=== PATIENT | male | born 1950 | race Caucasian/White ===

== ENCOUNTER 2019-04-18 19:12 | Inpatient (IN) | payer OTHER, MEDICAID ==
[~2019-04-18] VITALS: Ht 170.2 cm; Wt 73.0 kg
[2019-04-18 19:26] VITALS: BP_SYST 135
[2019-04-18] MEDS ORDERED: NACL 0.9% 1,000 ML IV ONE (20:06)
[2019-04-18] MEDS ORDERED: ACET-2165 PO (20:43)
[2019-04-18] MEDS ORDERED: LIP20 PO (20:44)
[2019-04-18] MEDS ORDERED: BENA20TA9 PO (20:44)
[2019-04-18] MEDS ORDERED: DOCU-144 PO (20:46)
[2019-04-18] MEDS ORDERED: EFAV1TAB PO (20:56)
[2019-04-18] MEDS ORDERED: LACT10SO6 PO (20:58)
[2019-04-18] MEDS ORDERED: FOLI-43 PO (20:58)
[2019-04-18] MEDS ORDERED: LACO200T2 PO (21:00)
[2019-04-18] MEDS ORDERED: LEVE1000 PO (21:00)
[2019-04-18] MEDS ORDERED: OXCA600T5 PO (21:01)
[2019-04-18] MEDS ORDERED: OXYB5TAB11 PO (21:02)
[2019-04-18] MEDS ORDERED: PRO40 PO (21:03)
[2019-04-18] MEDS ORDERED: RIFA550T5 PO (21:04)
[2019-04-18] MEDS ORDERED: TRAM50TA2 PO (21:05)
[2019-04-18 21:08] LABS: BASOPHILS # (AUTO) 0.1 K/uL (0.0-0.2); BASOPHILS % (AUTO) 1.5 % (0.0-2.0); EOSINOPHILS # (AUTO) 0.2 K/uL (0.0-0.4); HEMATOCRIT 36.4 % (36-54); HEMOGLOBIN 12.2 g/dL (14.0-18.0); LYMPHOCYTES % (AUTO) 52.1 % (20.5-51.5); MEAN CORPUSCULAR HEMOGLOBIN 38 pg (27-31); MEAN CORPUSCULAR HGB CONC 33 % (32-36); MEAN CORPUSCULAR VOLUME 114 fL (79.0-98.0); MONOCYTES # (AUTO) 0.7 K/uL (0.0-1.0); MONOCYTES % (AUTO) 12.4 % (1.7-9.3); NEUTROPHILS # (AUTO) 1.8 K/uL (1.8-7.7); PLATELET COUNT (AUTO) 92 K/uL (130-430); RED CELL DISTRIBUTION WIDTH 14.3 % (9.0-15.0); WHITE BLOOD COUNT (AUTO) 5.9 K/uL (4.8-10.8)
[2019-04-18 21:23] LABS: ALANINE AMINOTRANSFERASE 46 U/L (12-78); ALBUMIN 2.3 g/dL (3.4-4.8); ANION GAP 7 (5-15); ASPARTATE AMINOTRANSFERASE 121 U/L (10-37); CHLORIDE 111 mmol/L (98-107); CREATININE 0.92 mg/dL (0.55-1.30); GLUCOSE 99 mg/dL (70-99); POTASSIUM 3.7 mmol/L (3.5-5.1); SODIUM SERUM 138 mmol/L (136-145); TOTAL BILIRUBIN 0.5 mg/dL (0.0-1.0); UREA NITROGEN, BLOOD 17 mg/dL (8-21)
[2019-04-18 21:27] LABS: CARBAMAZEPINE (TEGRETOL) < 0 ug/mL (4-12); GFR AFRICAN AMERICAN 105 mL/min (>90)
[2019-04-18 21:30] LABS: CALCIUM 8.2 mg/dL (8.4-11.0)
[2019-04-18 21:36] LABS: INR 1.1 (0.80-1.20)
[2019-04-18 22:26] LABS: BILIRUBIN,URINE NEGATIVE (NEGATIVE); BLOOD, URINE NEGATIVE (NEGATIVE); CLARITY/URINE CLEAR (CLEAR); COLOR,URINE YELLOW (YELLOW); GLUCOSE,URINE NEGATIVE (NEGATIVE); KETONES,URINE NEGATIVE (NEGATIVE); LEUKOCYTE ESTERASE ,URINE NEGATIVE (NEGATIVE); NITRITE, URINE NEGATIVE (NEGATIVE); PROTEIN URINE NEGATIVE (NEGATIVE); UROBILINOGEN,URINE 0.2 (0.2-1.0)
[2019-04-18 23:21] VITALS: BP_SYST 101
[2019-04-19] VITALS: BP_SYST 101
[2019-04-19] MEDS: LACTULOSE 20 GM/30 ML UDC PO SCH ×4 (00:07→22:41)
[2019-04-19] MEDS: D5/0.45 NS 1,000 ML IV SCH ×2 (00:07→17:37)
[2019-04-19 05:50] LABS: BASOPHILS # (AUTO) 0.2 K/uL (0.0-0.2); BASOPHILS % (AUTO) 2.8 % (0.0-2.0); EOSINOPHILS # (AUTO) 0.2 K/uL (0.0-0.4); EOSINOPHILS % (AUTO) 4.2 % (0.0-4.0); HEMATOCRIT 34.3 % (36-54); HEMOGLOBIN 11.6 g/dL (14.0-18.0); LYMPHOCYTES % (AUTO) 52.2 % (20.5-51.5); MEAN CORPUSCULAR HEMOGLOBIN 38 pg (27-31); MEAN CORPUSCULAR HGB CONC 34 % (32-36); MEAN CORPUSCULAR VOLUME 113 fL (79.0-98.0); MONOCYTES # (AUTO) 0.7 K/uL (0.0-1.0); NEUTROPHILS # (AUTO) 1.6 K/uL (1.8-7.7); NEUTROPHILS % (AUTO) 28.8 % (40.0-70.0); PLATELET COUNT (AUTO) 95 K/uL (130-430); RED BLOOD CELL COUNT(AUTO) 3.05 MIL/uL (4.2-6.2); RED CELL DISTRIBUTION WIDTH 14.3 % (9.0-15.0); WHITE BLOOD COUNT (AUTO) 5.7 K/uL (4.8-10.8)
[2019-04-19 07:11] LABS: ALBUMIN 2.1 g/dL (3.4-4.8); BILIRUBIN,DIRECT 0.3 mg/dL (0.0-0.3); CALCIUM 8.6 mg/dL (8.4-11.0); CREATININE 0.91 mg/dL (0.55-1.30); POTASSIUM 3.5 mmol/L (3.5-5.1); THYROID STIMULATING HORMONE 2.33 uIu/mL (0.34-4.82); TOTAL BILIRUBIN 0.6 mg/dL (0.0-1.0)
[2019-04-19 08:00] VITALS: BP_SYST 101
[2019-04-19] MEDS: RIFAXIMIN 550 MG TABLET PO SCH ×2 (09:20→22:41)
[2019-04-19] MEDS: OXcarbazepine 150 MG TABLET(TRILEPTAL) PO SCH ×2 (09:20→22:42)
[2019-04-19] MEDS: LACOSAMIDE 100 MG TABLET PO SCH ×2 (09:21→22:42)
[2019-04-19] MEDS: levETIRAcetam 500 MG TABLET PO SCH ×2 (09:21→22:42)
[2019-04-19 12:00] VITALS: BP_SYST 108
[2019-04-19] MEDS ORDERED: LACTULOSE 20 GM/30 ML UDC PO ONE (15:45)
[2019-04-19] MEDS ORDERED: traMADol HCL HCL 50 MG TABLET (ULTRAM) PO PRN (15:45)
[2019-04-19] MEDS ORDERED: ACETAMINOPHEN 325 MG TABLET PO PRN (15:45)
[2019-04-19 16:35] VITALS: BP_SYST 115
[2019-04-19 20:00] VITALS: BP_SYST 108
[2019-04-19] MEDS ORDERED: RIFAXIMIN 550 MG TABLET PO SCH (21:00)
[2019-04-19] MEDS ORDERED: OXcarbazepine 150 MG TABLET(TRILEPTAL) PO SCH (21:00)
[2019-04-19] MEDS ORDERED: levETIRAcetam 500 MG TABLET PO SCH (21:00)
[2019-04-19] MEDS ORDERED: LACOSAMIDE 100 MG TABLET PO SCH (21:00)
[2019-04-19] MEDS ORDERED: NON-FORMULARY MEDICATION MC SCH (21:00)
[2019-04-19] MEDS: OXYBUTYNIN CHLORIDE 5 MG TABLET PO SCH (22:42)
[2019-04-20 00:57] VITALS: BP_SYST 100
[2019-04-20] MEDS: PANTOPRAZOLE SODIUM 40 MG TAB PO SCH (06:19)
[2019-04-20] MEDS: D5/0.45 NS 1,000 ML IV SCH (06:19)
[2019-04-20] MEDS: LACTULOSE 20 GM/30 ML UDC PO SCH ×3 (06:19→23:49)
[2019-04-20] MEDS: RIFAXIMIN 550 MG TABLET PO SCH ×2 (08:16→23:48)
[2019-04-20] MEDS: FOLIC ACID 1 MG TABLET PO SCH (08:17)
[2019-04-20] MEDS: LACOSAMIDE 100 MG TABLET PO SCH ×2 (08:17→23:48)
[2019-04-20] MEDS: LISINOPRIL 20 MG TABLET PO SCH (08:17)
[2019-04-20] MEDS: OXYBUTYNIN CHLORIDE 5 MG TABLET PO SCH ×3 (08:17→23:48)
[2019-04-20] MEDS: levETIRAcetam 500 MG TABLET PO SCH ×2 (08:17→23:48)
[2019-04-20] MEDS: OXcarbazepine 150 MG TABLET(TRILEPTAL) PO SCH ×2 (08:18→23:48)
[2019-04-20 09:28] VITALS: BP_SYST 114
[2019-04-20 11:19] VITALS: BP_SYST 113
[2019-04-20 12:43] LABS: BASOPHILS # (AUTO) 0.1 K/uL (0.0-0.2); MONOCYTES % (AUTO) 11.6 % (1.7-9.3); RED CELL DISTRIBUTION WIDTH 14.2 % (9.0-15.0)
[2019-04-20 13:28] LABS: EOSINOPHILS # (AUTO) 0.2 K/uL (0.0-0.4); EOSINOPHILS % (AUTO) 2.7 % (0.0-4.0); HEMATOCRIT 35.5 % (36-54); HEMOGLOBIN 11.9 g/dL (14.0-18.0); LYMPHOCYTES # (AUTO) 2.7 K/uL (1.0-5.5); LYMPHOCYTES % (AUTO) 47.3 % (20.5-51.5); MEAN CORPUSCULAR HEMOGLOBIN 38 pg (27-31); MEAN CORPUSCULAR HGB CONC 34 % (32-36); MEAN CORPUSCULAR VOLUME 113 fL (79.0-98.0); MONOCYTES # (AUTO) 0.7 K/uL (0.0-1.0); NEUTROPHILS # (AUTO) 2.1 K/uL (1.8-7.7); NEUTROPHILS % (AUTO) 37.4 % (40.0-70.0); RED BLOOD CELL COUNT(AUTO) 3.16 MIL/uL (4.2-6.2); WHITE BLOOD COUNT (AUTO) 5.7 K/uL (4.8-10.8)
[2019-04-20 13:31] LABS: PLATELET COUNT (AUTO) 91 K/uL (130-430)
[2019-04-20 16:00] VITALS: BP_SYST 102
[2019-04-20 20:00] VITALS: BP_SYST 96
[2019-04-21 00:45] VITALS: BP_SYST 100
[2019-04-21 06:09] LABS: BASOPHILS # (AUTO) 0.1 K/uL (0.0-0.2); BASOPHILS % (AUTO) 1.3 % (0.0-2.0); EOSINOPHILS # (AUTO) 0.2 K/uL (0.0-0.4); EOSINOPHILS % (AUTO) 3.9 % (0.0-4.0); HEMOGLOBIN 11.7 g/dL (14.0-18.0); LYMPHOCYTES % (AUTO) 48.7 % (20.5-51.5); MEAN CORPUSCULAR HEMOGLOBIN 39 pg (27-31); MEAN CORPUSCULAR HGB CONC 35 % (32-36); MEAN CORPUSCULAR VOLUME 112 fL (79.0-98.0); MONOCYTES # (AUTO) 0.7 K/uL (0.0-1.0); NEUTROPHILS # (AUTO) 2.2 K/uL (1.8-7.7); NEUTROPHILS % (AUTO) 35.1 % (40.0-70.0); PLATELET COUNT (AUTO) 86 K/uL (130-430); RED BLOOD CELL COUNT(AUTO) 3.04 MIL/uL (4.2-6.2); RED CELL DISTRIBUTION WIDTH 14.2 % (9.0-15.0); WHITE BLOOD COUNT (AUTO) 6.2 K/uL (4.8-10.8)
[2019-04-21 06:21] LABS: ALBUMIN 2.1 g/dL (3.4-4.8); CREATININE 0.81 mg/dL (0.55-1.30); POTASSIUM 3.6 mmol/L (3.5-5.1); TOTAL BILIRUBIN 0.6 mg/dL (0.0-1.0)
[2019-04-21] MEDS: LACTULOSE 20 GM/30 ML UDC PO SCH ×3 (06:27→21:13)
[2019-04-21] MEDS: PANTOPRAZOLE SODIUM 40 MG TAB PO SCH (06:27)
[2019-04-21 08:00] VITALS: BP_SYST 105
[2019-04-21] MEDS: RIFAXIMIN 550 MG TABLET PO SCH ×2 (08:29→21:12)
[2019-04-21] MEDS: LACOSAMIDE 100 MG TABLET PO SCH ×2 (08:30→21:13)
[2019-04-21] MEDS: levETIRAcetam 500 MG TABLET PO SCH ×2 (08:30→21:12)
[2019-04-21] MEDS: LISINOPRIL 20 MG TABLET PO SCH (08:30)
[2019-04-21] MEDS: FOLIC ACID 1 MG TABLET PO SCH (08:31)
[2019-04-21] MEDS: OXcarbazepine 150 MG TABLET(TRILEPTAL) PO SCH ×2 (08:31→21:13)
[2019-04-21] MEDS: OXYBUTYNIN CHLORIDE 5 MG TABLET PO SCH ×3 (08:31→21:12)
[2019-04-21] MEDS: D5/0.45 NS 1,000 ML IV SCH (10:45)
[2019-04-21 12:20] VITALS: BP_SYST 104
[2019-04-21 15:40] VITALS: BP_SYST 93
[2019-04-21] MEDS: SUSTIVA 600 MG PO SCH (17:44)
[2019-04-21] MEDS: TENOFOVIR DISOPROXIL FUMARATE 300 MG TABLET(VIREAD) PO SCH (17:44)
[2019-04-21] MEDS: EMTRICITABINE 200 MG CAPSULE PO SCH (17:45)
[2019-04-21 20:00] VITALS: BP_SYST 99
[2019-04-22] VITALS: BP_SYST 101
[2019-04-22] MEDS: LACTULOSE 20 GM/30 ML UDC PO SCH ×2 (06:13→14:11)
[2019-04-22] MEDS: D5/0.45 NS 1,000 ML IV SCH (06:13)
[2019-04-22] MEDS: PANTOPRAZOLE SODIUM 40 MG TAB PO SCH (06:13)
[2019-04-22 08:00] VITALS: BP_SYST 119
[2019-04-22] MEDS: levETIRAcetam 500 MG TABLET PO SCH (08:40)
[2019-04-22] MEDS: RIFAXIMIN 550 MG TABLET PO SCH (08:40)
[2019-04-22] MEDS: LACOSAMIDE 100 MG TABLET PO SCH (08:40)
[2019-04-22] MEDS: LISINOPRIL 20 MG TABLET PO SCH (08:41)
[2019-04-22] MEDS: OXcarbazepine 150 MG TABLET(TRILEPTAL) PO SCH (08:41)
[2019-04-22] MEDS: OXYBUTYNIN CHLORIDE 5 MG TABLET PO SCH ×2 (08:41→14:11)
[2019-04-22] MEDS: FOLIC ACID 1 MG TABLET PO SCH (08:41)
[2019-04-22 12:00] VITALS: BP_SYST 107
[2019-04-22 16:57] VITALS: BP_SYST 129
[2019-04-22 17:00] VITALS: BP_SYST 129
[2019-04-22] MEDS: TENOFOVIR DISOPROXIL FUMARATE 300 MG TABLET(VIREAD) PO SCH (17:04)
[2019-04-22] MEDS: EMTRICITABINE 200 MG CAPSULE PO SCH (17:05)
[2019-04-22] MEDS: SUSTIVA 600 MG PO SCH (17:05)
== END 2019-04-22 19:00 | DRG 441 ==
LOC: SED 19:12 → STU 22:40 → SMU 04-19 15:59
PROVIDERS: ADMIT Internal Medicine; ATTEND Internal Medicine
DX: K72.90 Hepatic failure, unspecified without coma (principal); G92 Toxic encephalopathy; B19.20 Unspecified viral hepatitis C without hepatic coma; E78.5 Hyperlipidemia, unspecified; F03.90 Unspecified dementia, unspecified severity, without behavioral disturbance, psychotic disturbance, mood disturbance, and anxiety; D69.6 Thrombocytopenia, unspecified; G40.909 Epilepsy, unspecified, not intractable, without status epilepticus; I10 Essential (primary) hypertension; K74.60 Unspecified cirrhosis of liver; D64.9 Anemia, unspecified; Z88.8 Allergy status to other drugs, medicaments and biological substances
CPT/HCPCS: 36415; 71045; 76700-TC; 80053; 80061; 80156-TC; 81003; 82140-TC; 82248-TC; 82272; 83605; 84443-TC; 85025; 85610-TC; 85730-TC; 87040-TC; 87081; 87536; 93005; 96360; 96361; 99285; G0378; G0482